=== PATIENT | male | born 1970 | race Caucasian/White ===

== ENCOUNTER 2017-03-01 07:25 | Emergency (ER) | payer OTHER ==
[~2017-03-01 07:25] MED LIST: ABILIFY5 MG PO; GLIPIZIDE5 MG PO; HYCET1 ML PO; LIPITOR20 MG PO; LISINOPRIL20 MG PO; METFORMIN HCL500 MG PO; METOPROLOL SUCC50 MG PO; TRAMADOL HCL50 MG PO
--- NOTE | 2017-03-01 08:31 | DIAGNOSTIC IMAGING REPORT ---
PROCEDURE: XR CERVICAL SPINE 2 OR 3 VIEW INDICATION: NECK PAIN TECHNIQUE: Three views. COMPARISON: Comparison made radiographs of the cervical spine on 09/14/2016. FINDINGS: Lower cervical spine is difficult to evaluate due to the shoulders. Allowing for this, there are marked degenerative changes of the lower cervical spine. There is no evidence of acute process or fracture. IMPRESSION: 1. Marked degenerative changes of the lower cervical spine.
--- NOTE | 2017-03-01 09:11 | ED ORDER SUMMARY ---
..... Patient: EMORY LYNN OrderSheet [facility] VisitID: [id number] [address] [place] [address] 46y, M Registration Date/Time: 03/01/2017 ORDER SHEET Weight: 92.9 kg (stated) Allergies: No Known Drug Allergy GENERAL ORDERS: Cervical Spine 2 or 3V Urgent (07:56 03/01/2017 Ilya Carballo) (8:08 JBoardley R.N.) MEDICATION ORDERS: Diazepam IM 10 mg (HIGH ALERT MEDICATION, NOW) (07:57 03/01/2017 Ilya Carballo) (Ack 7:59 JBoardley R.N.) (8:14 JBoardley R.N.) IV FLUIDS: ORDER SHEET NOTES: [Electronically signed by Philipp Novoa Dr. (09:44 03/01/2017)] [Electronically signed by Marshall Barreto R.N. (09:52 03/01/2017)] [Electronically locked/signed by Marshall Barreto R.N. (09:52 03/01/2017)]
--- NOTE | 2017-03-01 09:11 | ED ORDER SUMMARY ---
..... Patient: EMORY LYNN OrderSheet [facility] VisitID: [id number] [address] [place] [address] 46y, M Registration Date/Time: 03/01/2017 ORDER SHEET Weight: 92.9 kg (stated) Allergies: No Known Drug Allergy GENERAL ORDERS: Cervical Spine 2 or 3V Urgent (07:56 03/01/2017 Ilya Carballo) (8:08 JBoardley R.N.) MEDICATION ORDERS: Diazepam IM 10 mg (HIGH ALERT MEDICATION, NOW) (07:57 03/01/2017 Ilya Carballo) (Ack 7:59 JBoardley R.N.) (8:14 JBoardley R.N.) IV FLUIDS: ORDER SHEET NOTES: [Electronically signed by Philipp Novoa Dr. (09:44 03/01/2017)] [Electronically signed by Marshall Barreto R.N. (09:52 03/01/2017)] [Electronically locked/signed by Marshall Barreto R.N. (09:52 03/01/2017)]
--- NOTE | 2017-03-01 09:11 | ED CLINICAL REPORT ---
Clinical Report - Physicians/Mid Levels [facility] [address] [place] [address] 03/01/2017 7:27 Patient: EMORY LYNN Time Seen: 07:32; initial patient contact. Arrived- By private vehicle. Historian- patient. HISTORY OF PRESENT ILLNESS Chief Complaint: Injury to right shoulder. The injury happened several months ago. Occurred at work. ( lifting, denies dislocation). Patient is experiencing moderate pain. Patient denies injury to the head or neck. REVIEW OF SYSTEMS The patient has had tingling. No swelling, numbness or joint pain. He has had neck pain. All systems otherwise negative, except as recorded above. PAST HISTORY Muscle Strain, Upper Extremity. Cervical Strain. Hyperlipidemia. Hypertension. Diabetes Mellitus Type 2. Chest Pain. Arrhythmia. ADDITIONAL SURGERIES: Cholecystectomy. The patient's dominant hand is the right. Medications: Glipizide Oral, daily. Lipitor Oral, daily. Lisinopril Oral, daily. MetFORMIN HCl Oral (Tablet 1000 mg), 2x a day. Metoprolol Succinate ER Oral, daily. TraMADol HCl Oral 50 mg, as needed. Allergies: No Known Drug Allergy. SOCIAL HISTORY Current every day smoker (electronic cigarrette). ADDITIONAL NOTES The nursing notes have been reviewed. PHYSICAL EXAM Vital Signs: 03/01/2017 07:30 BP: 128/85. HR: 82. RR: 16. O2 saturation: 97%. Temp: 97.7 F. Pain level now: 4/10. Have been reviewed as normal. Appearance: Alert. Oriented X3. No acute distress. Neck: Mild pain in the entire posterior neck upon turning the head to the right, turning the head to the left, flexing the neck and extending the neck. Moderate muscle spasm of the right posterior neck. No decreased ROM in the neck. No vertebral tenderness. Extremities: Normal external inspection. Extremities nontender. No shoulder injury. Shoulder otherwise negative. Neuro, Vascular and Tendons: Motor intact. Vascular status intact. Tendon function intact. Tendon visualized, uninjured. Sensory deficit to light touch in the right hand. Deficit consistent with a C6 dermatome. No weakness. Neuro: No motor deficit. Reflexes normal. LABS, X-RAYS, AND EKG C-Spine X-rays: (1. Marked degenerative changes of the lower cervical spine.). Views: 3 view C-spine series. Technique: good. The X-rays were independently viewed by me, interpreted by the radiologist and discussed with the radiologist. Interpretation time: 08:53. PROGRESS AND PROCEDURES Course of Care: Diazepam 10 mg IM given. Physical exam findings are improved. Symptoms much better. Disposition: Discharged home in good and improved condition. Condition: good. CLINICAL IMPRESSION Chronic right lower cervical radiculopathy. Acute cervical strain. INSTRUCTIONS No lifting greater than 10 lbs until released. Prescription Medications: Baclofen 20 mg: take 1 orally every 8 hours. Dispense thirty (30). No refills. Follow-up: Follow up with doctor [facility] [phone] in about two days. Call for an appointment. (Electronically signed by Philipp Novoa Dr. 03/01/2017 9:44)
--- NOTE | 2017-03-01 09:11 | ED CLINICAL REPORT ---
Clinical Report - Physicians/Mid Levels [facility] [address] [place] [address] 03/01/2017 7:27 Patient: EMORY LYNN Time Seen: 07:32; initial patient contact. Arrived- By private vehicle. Historian- patient. HISTORY OF PRESENT ILLNESS Chief Complaint: Injury to right shoulder. The injury happened several months ago. Occurred at work. ( lifting, denies dislocation). Patient is experiencing moderate pain. Patient denies injury to the head or neck. REVIEW OF SYSTEMS The patient has had tingling. No swelling, numbness or joint pain. He has had neck pain. All systems otherwise negative, except as recorded above. PAST HISTORY Muscle Strain, Upper Extremity. Cervical Strain. Hyperlipidemia. Hypertension. Diabetes Mellitus Type 2. Chest Pain. Arrhythmia. ADDITIONAL SURGERIES: Cholecystectomy. The patient's dominant hand is the right. Medications: Glipizide Oral, daily. Lipitor Oral, daily. Lisinopril Oral, daily. MetFORMIN HCl Oral (Tablet 1000 mg), 2x a day. Metoprolol Succinate ER Oral, daily. TraMADol HCl Oral 50 mg, as needed. Allergies: No Known Drug Allergy. SOCIAL HISTORY Current every day smoker (electronic cigarrette). ADDITIONAL NOTES The nursing notes have been reviewed. PHYSICAL EXAM Vital Signs: 03/01/2017 07:30 BP: 128/85. HR: 82. RR: 16. O2 saturation: 97%. Temp: 97.7 F. Pain level now: 4/10. Have been reviewed as normal. Appearance: Alert. Oriented X3. No acute distress. Neck: Mild pain in the entire posterior neck upon turning the head to the right, turning the head to the left, flexing the neck and extending the neck. Moderate muscle spasm of the right posterior neck. No decreased ROM in the neck. No vertebral tenderness. Extremities: Normal external inspection. Extremities nontender. No shoulder injury. Shoulder otherwise negative. Neuro, Vascular and Tendons: Motor intact. Vascular status intact. Tendon function intact. Tendon visualized, uninjured. Sensory deficit to light touch in the right hand. Deficit consistent with a C6 dermatome. No weakness. Neuro: No motor deficit. Reflexes normal. LABS, X-RAYS, AND EKG C-Spine X-rays: (1. Marked degenerative changes of the lower cervical spine.). Views: 3 view C-spine series. Technique: good. The X-rays were independently viewed by me, interpreted by the radiologist and discussed with the radiologist. Interpretation time: 08:53. PROGRESS AND PROCEDURES Course of Care: Diazepam 10 mg IM given. Physical exam findings are improved. Symptoms much better. Disposition: Discharged home in good and improved condition. Condition: good. CLINICAL IMPRESSION Chronic right lower cervical radiculopathy. Acute cervical strain. INSTRUCTIONS No lifting greater than 10 lbs until released. Prescription Medications: Baclofen 20 mg: take 1 orally every 8 hours. Dispense thirty (30). No refills. Follow-up: Follow up with doctor [facility] [phone] in about two days. Call for an appointment. (Electronically signed by Philipp Novoa Dr. 03/01/2017 9:44)
--- NOTE | 2017-03-01 09:11 | ED NURSING NOTES ---
Clinical Report - Nurses [facility] [address] [place] [address] 03/01/2017 7:27 [id number] Triage time 07:Mar 01 2017. Acuity: LEVEL 4. Chief Complaint: Location of symptoms- right shoulder. 07:31 03/01/17. 07:03/01/17. Alert. No acute distress. SEPSIS SCREEN: Sepsis Screen. Negative (no infection suspected/documented). ALEN COMA SCORE: [place] Coma Scale: 15- eyes open spontaneously (4); best verbal response- oriented x 4 (5); best motor response- obeys commands (6). --07:35 Marshall Barreto R.N. 07:30 03/01/17. BP: 128/85. HR: 82. RR: 16. O2 saturation: 97% on room air. Temp: 97.7 F (oral). Pain level now: 01/16. --07:35 Marshall Barreto R.N. 07:37 03/01/17. Pain level now: 05/18. --07:37 Marshall Barreto R.N. Weight: 92.9 kg stated. Height/Length: 70 inches Per Patient. BMI: 29.4. --07:32 Marshall Barreto R.N. Medications Glipizide Oral, daily. Lipitor Oral, daily. Lisinopril Oral, daily. MetFORMIN HCl Oral (Tablet 1000 mg), 2x a day. Metoprolol Succinate ER Oral, daily. TraMADol HCl Oral 50 mg, as needed. --07:36 Marshall Barreto R.N. Allergies No Known Drug Allergy. --07:36 Marshall Barreto R.N. History Arrived by private vehicle. Historian: patient. Accompanied by family. Primary physician (SARIAH OSM[facility]). 07:31 03/01/17. An injury may have occurred. It is described as radiating to the right upper extremity and upper arm. PAST MEDICAL HX: Tetanus status: up-to-date. Immunizations: up-to-date. SOCIAL HX: Smoker- current status unknown (Vape). No alcohol use or drug use. No infectious disease exposure. ABUSE ASSESSMENT: No report of abuse. FALL RISK ASSESSMENT: Fall risk assessment completed. No fall risk identified. NUTRITIONAL RISK ASSESSMENT: The nutritional risk assessment revealed no deficiencies. FUNCTIONAL ASSESSMENT: Functional assessment: no impairments noted. LEARNING NEEDS ASSESSMENT: The learning needs assessment revealed no barriers. SKIN INTEGRITY ASSESSMENT: Skin integrity risk assessment completed. No skin integrity risk identified. --07:35 Marshall Barreto R.N. Treatment ASSISTANT DISTRICT ATTORNEY: Took ibuprofen. --07:35 Marshall Barreto R.N. Treatment ASSISTANT DISTRICT ATTORNEY: Ice. --07:37 Marshall Barreto R.N. PROBLEMS: Muscle Strain, Upper Extremity. Cervical Strain. Hyperlipidemia. Hypertension. Diabetes Mellitus Type 2. Chest Pain. Arrhythmia. --07:36 Marshall Barreto R.N. ADDITIONAL SURGERIES: Cholecystectomy. --07:36 Marshall Barreto R.N. Assessment 07:03/01/17. --07:35 Marshall Barreto R.N. Interventions 07:03/01/17. 07:03/01/17. ID and allergy band on patient. To treatment room. --07:35 Marshall Barreto R.N. PHYSICAL ASSESSMENT 07:32 03/01/17. Ambulatory to room. GENERAL / NEURO / PSYCH: Oriented X 4. Alert. Appears in no acute distress. EXTREMITIES: No upper extremity edema. Right shoulder: tenderness. Right arm: tenderness. SKIN: Skin intact. Skin is warm and dry. --07:32 Marshall Barreto R.N. NURSING PROGRESS NOTES 07:33 03/01/17. Neuro-vascular extremity check. Patient gowned. Reassurance given. Call light placed in reach. Side rails up x 2. Bed placed in lowest position. Brakes of bed on. Patient ready for evaluation- chart flagged and notification provided. --07:33 Marshall Barreto R.N. 08:14 03/01/2017 Diazepam (Diazepam) IM 10 mg given. Given in the left deltoid. Allergies verified, confirmed 5 rights and sedative warning given to the patient. --08:14 Marshall Barreto R.N. 08:15 03/01/17. --08:15 Marshall Barreto R.N. 08:14 03/01/17. BP: 138/78. HR: 87. RR: 17. O2 saturation: 99% on room air. Pain level now: 04/17. --08:15 Marshall Barreto R.N. 08:15 03/01/17. Patient informed about reason for wait and about plan of care. --08:15 Marshall Barreto R.N. 08:30 03/01/17. Reassessment after medication administered. He has had no adverse reaction. Overall patient status is improved- he states feels better. --08:30 Marshall Barreto R.N. 08:30 03/01/17. Pain level now: 01/16. --08:30 Marshall Barreto R.N. DISPOSITION / DISCHARGE 09:03/01/17. Condition at departure: improved. The goals identified in the patient's plan of care were met. No learning barriers present. Discharge instructions provided and reviewed with the patient. Reviewed warnings. Reviewed medication(s). Treatments reviewed. Reviewed referrals (Spine Specailist). Patient verbalized understanding. Written instructions provided in Malaysian. The patient was discharged by the physician. He was discharged home and accompanied by identification technician. He left the Emergency Department ambulatory and via private vehicle. Cupola Repairer driving. FALL RISK ASSESSMENT: Fall risk assessment completed. No fall risk identified. --09:22 Marshall Barreto R.N. 09:21 03/01/17. BP: 136/78. HR: 81. RR: 15. O2 saturation: 100% on room air. Temp: 98.2 F (oral). Pain level now: 12/16. --09:22 Marshall Barreto R.N. 09:22 03/01/17. Departure time: 09:Mar 01 2017. --09:22 Marshall Barreto R.N. Locked/Released at 03/01/2017 9:52 by Marshall Barreto R.N.
--- NOTE | 2017-03-01 09:11 | ED NURSING NOTES ---
Clinical Report - Nurses [facility] [address] [place] [address] 03/01/2017 7:27 [id number] Triage time 07:Mar 01 2017. Acuity: LEVEL 4. Chief Complaint: Location of symptoms- right shoulder. 07:31 03/01/17. 07:03/01/17. Alert. No acute distress. SEPSIS SCREEN: Sepsis Screen. Negative (no infection suspected/documented). ALEN COMA SCORE: [place] Coma Scale: 15- eyes open spontaneously (4); best verbal response- oriented x 4 (5); best motor response- obeys commands (6). --07:35 Marshall Barreto R.N. 07:30 03/01/17. BP: 128/85. HR: 82. RR: 16. O2 saturation: 97% on room air. Temp: 97.7 F (oral). Pain level now: 01/16. --07:35 Marshall Barreto R.N. 07:37 03/01/17. Pain level now: 05/18. --07:37 Marshall Barreto R.N. Weight: 92.9 kg stated. Height/Length: 70 inches Per Patient. BMI: 29.4. --07:32 Marshall Barreto R.N. Medications Glipizide Oral, daily. Lipitor Oral, daily. Lisinopril Oral, daily. MetFORMIN HCl Oral (Tablet 1000 mg), 2x a day. Metoprolol Succinate ER Oral, daily. TraMADol HCl Oral 50 mg, as needed. --07:36 Marshall Barreto R.N. Allergies No Known Drug Allergy. --07:36 Marshall Barreto R.N. History Arrived by private vehicle. Historian: patient. Accompanied by family. Primary physician (SARIAH OSMAN[facility]). 07:31 03/01/17. An injury may have occurred. It is described as radiating to the right upper extremity and upper arm. PAST MEDICAL HX: Tetanus status: up-to-date. Immunizations: up-to-date. SOCIAL HX: Smoker- current status unknown (Vape). No alcohol use or drug use. No infectious disease exposure. ABUSE ASSESSMENT: No report of abuse. FALL RISK ASSESSMENT: Fall risk assessment completed. No fall risk identified. NUTRITIONAL RISK ASSESSMENT: The nutritional risk assessment revealed no deficiencies. FUNCTIONAL ASSESSMENT: Functional assessment: no impairments noted. LEARNING NEEDS ASSESSMENT: The learning needs assessment revealed no barriers. SKIN INTEGRITY ASSESSMENT: Skin integrity risk assessment completed. No skin integrity risk identified. --07:35 Marshall Barreto R.N. Treatment MESSAGE BROKER DEVELOPER: Took ibuprofen. --07:35 Marshall Barreto R.N. Treatment MESSAGE BROKER DEVELOPER: Ice. --07:37 Marshall Barreto R.N. PROBLEMS: Muscle Strain, Upper Extremity. Cervical Strain. Hyperlipidemia. Hypertension. Diabetes Mellitus Type 2. Chest Pain. Arrhythmia. --07:36 Marshall Barreto R.N. ADDITIONAL SURGERIES: Cholecystectomy. --07:36 Marshall Barreto R.N. Assessment 07:03/01/17. --07:35 Marshall Barreto R.N. Interventions 07:03/01/17. 07:03/01/17. ID and allergy band on patient. To treatment room. --07:35 Marshall Barreto R.N. PHYSICAL ASSESSMENT 07:32 03/01/17. Ambulatory to room. GENERAL / NEURO / PSYCH: Oriented X 4. Alert. Appears in no acute distress. EXTREMITIES: No upper extremity edema. Right shoulder: tenderness. Right arm: tenderness. SKIN: Skin intact. Skin is warm and dry. --07:32 Marshall Barreto R.N. NURSING PROGRESS NOTES 07:33 03/01/17. Neuro-vascular extremity check. Patient gowned. Reassurance given. Call light placed in reach. Side rails up x 2. Bed placed in lowest position. Brakes of bed on. Patient ready for evaluation- chart flagged and notification provided. --07:33 Marshall Barreto R.N. 08:14 03/01/2017 Diazepam (Diazepam) IM 10 mg given. Given in the left deltoid. Allergies verified, confirmed 5 rights and sedative warning given to the patient. --08:14 Marshall Barreto R.N. 08:15 03/01/17. --08:15 Marshall Barreto R.N. 08:14 03/01/17. BP: 138/78. HR: 87. RR: 17. O2 saturation: 99% on room air. Pain level now: 04/17. --08:15 Marshall Barreto R.N. 08:15 03/01/17. Patient informed about reason for wait and about plan of care. --08:15 Marshall Barreto R.N. 08:30 03/01/17. Reassessment after medication administered. He has had no adverse reaction. Overall patient status is improved- he states feels better. --08:30 Marshall Barreto R.N. 08:30 03/01/17. Pain level now: 01/16. --08:30 Marshall Barreto R.N. DISPOSITION / DISCHARGE 09:03/01/17. Condition at departure: improved. The goals identified in the patient's plan of care were met. No learning barriers present. Discharge instructions provided and reviewed with the patient. Reviewed warnings. Reviewed medication(s). Treatments reviewed. Reviewed referrals (Spine Specailist). Patient verbalized understanding. Written instructions provided in Bhutanese. The patient was discharged by the physician. He was discharged home and accompanied by slitter scorer. He left the Emergency Department ambulatory and via private vehicle. Manufacturing Director driving. FALL RISK ASSESSMENT: Fall risk assessment completed. No fall risk identified. --09:22 Marshall Barreto R.N. 09:21 03/01/17. BP: 136/78. HR: 81. RR: 15. O2 saturation: 100% on room air. Temp: 98.2 F (oral). Pain level now: 12/16. --09:22 Marshall Barreto R.N. 09:22 03/01/17. Departure time: 09:Mar 01 2017. --09:22 Marshall Barreto R.N. Locked/Released at 03/01/2017 9:52 by Marshall Barreto R.N.
--- NOTE | 2017-03-01 09:52 | ED MED RECONCILIATION SUMMARY ---
Patient: EMORY LYNN Medication Reconciliation Report [facility] VisitID: [id number] [address] [place] [address] 46y, M Registration Date/Time: 03/01/2017 Weight: 92.9 kg Height/Length: 70 in. BMI: 29.4 ALLERGIES: No Known Drug Allergy The patient's Home Medications are listed below: THE FOLLOWING MEDICATIONS NEED TO BE RECONCILED: Glipizide Oral, daily Lipitor Oral, daily Lisinopril Oral, daily MetFORMIN HCl Oral (1000 mg), 2x a day Metoprolol Succinate ER Oral, daily TraMADol HCl Oral 50 mg The source(s) of the original Home Medication information: Not obtained. The following Medications were given to the patient in the Emergency Department: Diazepam [IM] IM 10 mg, administered: 03/01/2017 8:14:00 AM The following Medications were prescribed to the patient: Baclofen 20 mg: take 1 orally every 8 hours. Dispense thirty (30). No refills. -- Philipp Novoa Dr.
--- NOTE | 2017-03-01 09:52 | ED DISCHARGE INSTRUCTIONS ---
Patient: EMORY LYNN General Instructions [facility] VisitID: [id number] [place] [address] 46y, M Registration Date/Time: 03/01/2017 Chronic right lower cervical radiculopathy. Acute cervical strain. INSTRUCTIONS No lifting greater than 10 lbs until released. Prescription Medications: Baclofen 20 mg: take 1 orally every 8 hours. Dispense thirty (30). No refills. Follow-up: Follow up with doctor [facility] [phone] in about two days. Call for an appointment. ADDITIONAL INFORMATION Pinched Nerve, Neck [Cervical Radiculopathy] A pinched nerve in the neck (also called "Cervical Radiculopathy") is caused by irritation or pressure on the nerve that goes from the spinal cord to the arm. This may be caused by a bulging spinal disk (a "spinal disk" is the cushion between each spinal bone) or narrowing of the spinal joint due to arthritis. This can cause numbness, tingling, deep aching or electrical shooting pain from the side of the neck all the way down to the fingers on one side. A pinched nerve may begin after a sudden turning/bending force (such as in a car accident) or after a simple awkward movement. In either case, muscle spasm is commonly present and contributes to the pain. Home Care: 1) Rest and relax the muscles. Use a comfortable pillow that supports the head and keeps the spine in a neutral position. The position of the head should not be tilted forward or backward. A rolled up towel may help for a custom fit. 2) Some persons find relief with heat (hot shower, hot bath or heating pad) and massage, while others prefer cold packs (crushed or cubed ice in a plastic bag, wrapped in a towel) . Try both and use the method that feels best for 20 minutes several times a day. 3) You may use acetaminophen (Tylenol) or ibuprofen (Motrin, Advil) to control pain, unless another medicine was prescribed. [ NOTE : If you have chronic liver or kidney disease or ever had a stomach ulcer or GI bleeding, talk with your doctor before using these medicines.] Follow Up with your physician or this facility if your symptoms do not show signs of improvement after one week. Further testing may be needed. [NOTE: If x-rays were taken, they will be reviewed by a radiologist. You will be notified of any new findings that may affect your care.] Get Prompt Medical Attention if any of the following occur: -- Pain becomes worse and not controlled by prescribed pain medicine -- Weakness in the arm -- Increasing numbness in the arm -- Trouble breathing or swallowing Neck Sprain Or Strain A sudden force that causes turning or bending of the neck (such as in a car accident) can stretch or tear muscles (strain) and ligaments (sprain) and cause neck pain. Sometimes neck pain occurs after a simple awkward movement. In either case, muscle spasm is commonly present and contributes to the pain. Unless you had a forceful physical injury (for example, a car accident or fall), X-rays are usually not ordered for the initial evaluation of neck pain. If pain continues and dose not respond to medical treatment, X-rays and other tests may be performed at a later time. Home care The following guidelines will help you care for your injury at home: You may feel more soreness and spasm the first few days after the injury. Reduce your activity level until symptoms begin to improve. When lying down, use a comfortable pillow that supports the head and keeps the spine in a neutral position. The position of the head should not be tilted forward or backward. Use ice packs (ice in a plastic bag, wrapped in a towel) to treat acute pain. Apply for 20 minutes every 24 hours during the first two days. Then, begin local heat (hot shower, hot bath or heating pad) andmassageto reduce muscle spasm. Some patients feel best alternating hot and cold treatments, or just staying with one method only. Do what feels the best to you and gives the most relief. You may use acetaminophen or ibuprofen to control pain, unless another pain medicine was prescribed.If you have chronic liver or kidney disease or ever had a stomach ulcer or GI bleeding, talk with your doctor before using these medicines. Follow-up care Follow up with your physician or this facility if your symptoms do not show signs of improvement. Physical therapy may be needed. If you had X-rays today, they didnt show any broken bones, breaks, or fractures. Sometimes fractures dont show up on the first X-ray. Bruises and sprains can sometimes hurt as much as a fracture. These injuries can take time to heal completely. If your symptoms dont improve or they get worse, talk with your doctor. You may need a repeat X-ray. When to seek medical care Get prompt medical attention if any of the following occur: Pain becomes worse or spreads into your arms Weakness or numbness in one or both arms You have been given the following additional information: Radiculopathy, Cervical Neck Sprain/Strain No lifting greater than 10 lbs until released. (Electronically signed by Philipp Novoa Dr. 03/01/2017 9:44)
--- NOTE | 2017-03-01 09:52 | ED MAR SUMMARY ---
..... Medication Administration Record [facility] [address] [place] [address] Patient: EMORY LYNN Visit ID: [id number] 46y, M Weight: 92.9 kg Height/Length: 70 in BMI: 29.4 ALLERGIES: No Known Drug Allergy Given 08:14 03/01/2017 Marshall Barreto R.N. Medication Administered: DIAZEPAM [IM] (DIAZEPAM), Dose: 10 mg IM. Medication Ordered: Diazepam IM 10 mg (HIGH ALERT MEDICATION, NOW).
--- NOTE | 2017-03-01 09:52 | ED MED RECONCILIATION SUMMARY ---
Patient: EMORY LYNN Medication Reconciliation Report [facility] VisitID: [id number] [address] [place] [address] 46y, M Registration Date/Time: 03/01/2017 Weight: 92.9 kg Height/Length: 70 in. BMI: 29.4 ALLERGIES: No Known Drug Allergy The patient's Home Medications are listed below: THE FOLLOWING MEDICATIONS NEED TO BE RECONCILED: Glipizide Oral, daily Lipitor Oral, daily Lisinopril Oral, daily MetFORMIN HCl Oral (1000 mg), 2x a day Metoprolol Succinate ER Oral, daily TraMADol HCl Oral 50 mg The source(s) of the original Home Medication information: Not obtained. The following Medications were given to the patient in the Emergency Department: Diazepam [IM] IM 10 mg, administered: 03/01/2017 8:14:00 AM The following Medications were prescribed to the patient: Baclofen 20 mg: take 1 orally every 8 hours. Dispense thirty (30). No refills. -- Philipp Novoa Dr.
--- NOTE | 2017-03-01 09:52 | ED MAR SUMMARY ---
..... Medication Administration Record [facility] [address] [place] [address] Patient: EMORY LYNN Visit ID: [id number] 46y, M Weight: 92.9 kg Height/Length: 70 in BMI: 29.4 ALLERGIES: No Known Drug Allergy Given 08:14 03/01/2017 Marshall Barreto R.N. Medication Administered: DIAZEPAM [IM] (DIAZEPAM), Dose: 10 mg IM. Medication Ordered: Diazepam IM 10 mg (HIGH ALERT MEDICATION, NOW).
== END 2017-03-01 09:22 | disposition home or self-care (01) ==
LOC: ED SRH 07:25
DX: S16.1XXA Strain of muscle, fascia and tendon at neck level, initial encounter (principal); M54.12 Radiculopathy, cervical region; X50.9XXA Other and unspecified overexertion or strenuous movements or postures, initial encounter; Y93.89 Activity, other specified; Y99.0 Civilian activity done for income or pay; I10 Essential (primary) hypertension; E11.9 Type 2 diabetes mellitus without complications; E78.5 Hyperlipidemia, unspecified; Z79.84 Long term (current) use of oral hypoglycemic drugs